=== PATIENT | male | born 1935 | race Caucasian/White ===

== ENCOUNTER 2023-09-15 13:43 | Emergency (ER) | payer MEDICARE, SELFPAY ==
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
--- NOTE | ~2023-09-15 | XR_ITS ---
XR hand LT min 3V DATE: 09/15/2023 16:07 INDICATION: Injury TECHNIQUE: 3 views of left hand COMPARISON: None FINDINGS: There is diffuse osteopenia. There is polyarticular osteoarthritis involving particularly the first carpometacarpal and interphala ngeal joints as well as the first metacarpophalangeal joint. No fracture or dislocation, periosteal reaction or bone destruction or erosive change is noted. No ch ondrocalcinosis is noted. IMPRESSION: Polyarticular osteoarthritis Osteopenia No recent fracture is detected Reviewed, dictated and finalized at [facility].
[2023-09-15 14:25] VITALS: BP 191/83; PULSE 98; RESP 18; TEMP 36.7; O2SAT 98
[2023-09-15 15:25] VITALS: BP 172/66; PULSE 90; RESP 14; TEMP 37.1; O2SAT 98
[2023-09-15 16:13] LABS: Basophils Absolute Auto 0.1 K/mm3 (0.0-0.1); Basophils Percent Auto 0.4 % (0.2-1.2); Hematocrit 42.4 % (42.0-52.0); Hemoglobin 13.2 g/dL (14.0-18.0); Immature Granulocyte Absolute 0.05 K/mm3 (0.00-0.031); Immature Granulocyte Percent A 0.4 % (0-0.5); Lymphocytes Absolute Auto 0.76 K/mm3 (0.9-3.2); Lymphocytes Percent Auto 6.2 % (18.3-44.2); Mean Corpuscular HGB Conc 31.1 g/dl (32-36); Mean Corpuscular Hemoglobin 26.1 pg (26-34); Mean Corpuscular Volume 83.8 fl (80-100); Mean Platelet Volume 10.4 fl (7.4-10.4); Monocytes Absolute Auto 0.6 K/mm3 (0.1-0.6); Monocytes Percent Auto 4.7 % (2.6-8.5); Neutrophils Absolute Auto 10.8 K/mm3 (1.3-6.7); Neutrophils Percent Auto 88.3 % (45.5-73.1); Platelet Count Result 288 k/mm3 (150-375); Red Blood Count 5.06 M/mm3 (4.6-6.20); Red Cell Distribution Width 15.6 % (11.5-14.5); White Blood Count 12.3 K/mm3 (4.5-10.0)
[2023-09-15 16:27] LABS: Alanine Aminotransferase 15 U/L (6-50); Albumin Level 4.1 g/dL (3.5-5.1); Alkaline Phosphatase 102 U/L (38-126); Anion Gap 9 mmol/L (8-16); Aspartate Amino Transferase 27 U/L (17-59); Bilirubin,Total 0.9 mg/dL (0.2-1.3); Blood Urea Nitrogen 25 mg/dL (9-20); Calcium 9.2 mg/dL (8.4-10.2); Carbon Dioxide 25 mmol/L (22-30); Chloride 105 mmol/L (98-107); Estimated CRCL calculation 34 ml/min; Estimated Glomerular Filt Rate 52; Glucose 293 mg/dL (65-110); Potassium 4.5 mmol/L (3.4-5.0); Sodium 139 mmol/L (137-145)
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
[2023-09-15 17:34] VITALS: BP 190/78; PULSE 77; RESP 16; TEMP 36.9; O2SAT 100
== END 2023-09-15 17:35 | disposition home or self-care (01) ==
PROVIDERS: Emergency Provider Emergency Medicine
DX: S60.222A Contusion of left hand, initial encounter (principal); E11.9 Type 2 diabetes mellitus without complications; I10 Essential (primary) hypertension; F03.90 Unspecified dementia, unspecified severity, without behavioral disturbance, psychotic disturbance, mood disturbance, and anxiety; V89.2XXA Person injured in unspecified motor-vehicle accident, traffic, initial encounter
CPT/HCPCS: 36415; 70450; 73130; 80053; 85025; 99284